=== PATIENT | female | born 1960 | race Caucasian/White ===

== ENCOUNTER → 2017-06-23 | Outpatient (CLI) | payer BC | LOC: FIMAGING 13:45 | PROVIDERS: ATTEND Family Medicine | DX: Z12.31 Encounter for screening mammogram for malignant neoplasm of breast (principal) ==

== ENCOUNTER 2017-10-26 16:00 | Emergency (ER) | payer BC ==
[2017-10-26 16:07] VITALS: BP 113/72
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
== END 2017-10-26 17:12 | disposition home or self-care (01) ==
DX: R07.81 Pleurodynia (principal)

== ENCOUNTER 2017-11-05 09:56 | Emergency (ER) | payer BC ==
[2017-11-05] MEDS ORDERED: ONDANSETRON DISINTEGRATING 4 MG TAB ONE (10:08)
[2017-11-05] MEDS ORDERED: ONDANSETRON DISINTEGRATING 4 MG TAB PO ONE (10:09)
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
[2017-11-05] MEDS ORDERED: IBUPROFEN 600 MG TAB PO ONE (11:08)
[2017-11-05 11:14] VITALS: BP 118/73
== END 2017-11-05 11:23 | disposition home or self-care (01) ==
DX: S22.32XD Fracture of one rib, left side, subsequent encounter for fracture with routine healing (principal); W50.0XXD Accidental hit or strike by another person, subsequent encounter

== ENCOUNTER → 2018-08-16 | Outpatient (CLI) | payer BC | LOC: FIMAGING 15:32 | PROVIDERS: ATTEND Family Medicine | DX: Z12.31 Encounter for screening mammogram for malignant neoplasm of breast (principal) ==

== ENCOUNTER 2018-12-01 16:24 | Inpatient (IN) | payer BC | END 2018-12-02 17:00 | disposition home or self-care (01) | LOC: F2N 18:41 ==